=== PATIENT | male | born 1995 | race American Indian/Alaskan Native ===

== ENCOUNTER 2018-08-05 00:39 | Emergency (ER) | payer SELFPAY ==
[2018-08-05 00:56] VITALS: BP 127/68
--- NOTE | 2018-08-05 01:35 | XRay Report ---
FINAL REPORT EXAM: XR CHEST ROUTINE 2V HISTORY: cough, Cough with intermittent fever, spitting up phelgm, chest pain that extends from [place] of chest to right side x3 days TECHNIQUE: 2 views of the chest. PRIORS: None. FINDINGS: The cardiomediastinal silhouette appears normal. The lungs are clear. The bones and soft tissues are unremarkable. IMPRESSION: No evidence of acute cardiopulmonary disease
--- NOTE | 2018-08-05 03:30 | Emergency Department Report ---
HPI - General Chief Complaint: Chest Pain Time Seen by Provider: 08/05/18 03:19 - HPI HPI: Room 1 The patient is a 23-year-old male presenting with a chief complaint chest pain. Patient states the past 3 days he's had intermittent substernal and right-sided chest pain described as sharpness and pressure in nature. Patient admits to occasional shortness of breath and occasional diaphoresis with this pain. Patient admits to occasional pleurisy. Patient denies any recent flights or long car trips. Patient states he has had an occasional cough that is sometimes produces clear/white sputum. When asked how he is feeling currently the patient states he feels "okay." Location: Chest Duration: Intermittent 3 days Quality: Sharp/pressure Severity: Moderate Modifying factors: [see above] Context: [see above] Mode of transportation: [not driving] ED Past Medical Hx - Past Medical History Previous Medical History?: No - Surgical History Past Surgical History?: No - Family History Family history: no significant - Social History Smoking Status: Current Some Day Smoker (occasional) Substance Use Type: None (denies illicit drug use), Alcohol (occasional) - Medications Home Medications: Home Medications Medication Instructions Recorded Confirmed Last Taken Type Ibuprofen [Motrin 800 MG tab] 800 mg PO Q8HR PRN #20 tablet 08/05/18 Unknown Rx traMADol [Ultram] 50 mg PO Q6HR PRN #10 tablet 08/05/18 Unknown Rx ED Review of Systems ROS: Stated complaint: CHEST PAIN/SOB Other details as noted in HPI Constitutional: diaphoresis Eyes: denies: eye pain ENT: denies: throat pain Respiratory: cough, shortness of breath Cardiovascular: chest pain Endocrine: no symptoms reported Gastrointestinal: denies: nausea, vomiting Genitourinary: denies: dysuria Musculoskeletal: denies: back pain Neurological: denies: headache Physical Exam - Physical Exam Vital Signs: Vital Signs 08/05/18 08/05/18 00:48 00:50 Temperature 97.8 F 97.8 F Pulse Rate 78 75 Respiratory 16 16 Rate Blood Pressure 124/68 127/68 O2 Sat by Pulse 100 100 Oximetry Physical Exam: GENERAL: The patient is well-developed well-nourished male lying on stretcher not appearing to be in acute distress. [] HEENT: Normocephalic. Atraumatic. Extraocular motions are intact. Patient has moist mucous membranes. NECK: Supple. Trachea midline CHEST/LUNGS: Clear to auscultation. There is no respiratory distress noted. HEART/CARDIOVASCULAR: Regular. There is no tachycardia. There is no gallop rub or murmur. ABDOMEN: Abdomen is soft, nontender. Patient has normal bowel sounds. There is no abdominal distention. SKIN: There is no rash. There is no edema. There is no diaphoresis. NEURO: The patient is awake, alert, and oriented. The patient is cooperative. The patient has normal speech MUSCULOSKELETAL: There is no evidence of acute injury. ED Course Vital Signs 08/05/18 08/05/18 00:48 00:50 Temperature 97.8 F 97.8 F Pulse Rate 78 75 Respiratory 16 16 Rate Blood Pressure 124/68 127/68 O2 Sat by Pulse 100 100 Oximetry ED Medical Decision Making - Lab Data Result diagrams: 08/05/18 03:35 08/05/18 03:35 Laboratory Tests 08/05/18 08/05/18 08/05/18 03:35 03:35 03:35 WBC 3.9 L RBC 5.08 H Hgb 14.3 Hct 42.9 MCV 85 MCH 28 MCHC 33 RDW 16.2 H Plt Count 214 Lymph % (Auto) 48.6 H [place] % (Auto) 5.2 Eos % (Auto) 3.0 Baso % (Auto) 0.8 Lymph # 1.9 [place] # 0.2 Eos # 0.1 Baso # 0.0 Seg Neutrophils % 42.4 Seg Neutrophils # 1.6 L D-Dimer 137.63 Sodium 139 Potassium 3.9 Chloride 100.2 Carbon Dioxide 27 Anion Gap 16 BUN 13 Creatinine 0.8 Estimated GFR > 60 BUN/Creatinine Ratio 16 Glucose 97 Calcium 9.0 Total Creatine Kinase 150 CK-MB (CK-2) < 1.0 CK-MB (CK-2) Rel Index 0.6 Troponin T < 0.010 - EKG Data -: EKG Interpreted by Me EKG shows normal: sinus rhythm Rate: normal - EKG Data When compared to previous EKG there are: previous EKG unavailable Interpretation: nonspecific ST-T wave henry (T-wave inversion in lead V2) - Radiology Data Radiology results: report reviewed (chest x-ray), image reviewed (chest x-ray) interpreted by me: Chest x-ray-no focal infiltrates, no pneumothorax [facility] [address] [place] [address] XRay Report Signed Patient: TYLER AUSTIN MR#: [id number] : 1995 Acct:[id number] Age/Sex: 23 / M ADM Date: 08/05/18 Loc: ED Attending Dr: Ordering Physician: CHRISTOPHER GIL MD Date of Service: 08/05/18 Procedure(s): XR chest routine 2V Accession Number(s): [id number] cc: ED MD LOUISE Fluoro Time In Minutes: FINAL REPORT EXAM: XR CHEST ROUTINE 2V HISTORY: cough, Cough with intermittent fever, spitting up phelgm, chest pain that extends from [place] of chest to right side x3 days TECHNIQUE: 2 views of the chest. PRIORS: None. FINDINGS: The cardiomediastinal silhouette appears normal. The lungs are clear. The bones and soft tissues are unremarkable. IMPRESSION: No evidence of acute cardiopulmonary disease Transcribed By: ML Dictated By: DONAVON WOOD MD Electronically Authenticated By: DONAVON WOOD MD Signed Date/Time: 08/05/18134 DD/ 3 TD/TT: 08/05/18133 - Differential Diagnosis pleurisy, PE, bronchitis, pneumonia, pneumothorax, costochondritis Critical care attestation.: If time is entered above; I have spent that time in minutes in the direct care of this critically ill patient, excluding procedure time. ED Disposition Clinical Impression: Atypical chest pain Disposition: DC-01 TO HOME OR SELFCARE Is pt being admited?: No Does the pt Need Aspirin: No Condition: Stable Instructions: Chest Pain (ED) Additional Instructions: Return to the emergency department immediately should you develop worsening symptoms, fever, inability to tolerate food or liquid or any other concerns. Prescriptions: Ibuprofen [Motrin 800 MG tab] 800 mg PO Q8HR PRN #20 tablet PRN Reason: Pain, Moderate (4-6) traMADol [Ultram] 50 mg PO Q6HR PRN #10 tablet PRN Reason: Pain Referrals: ORLEANS NIYADAVID FLOREZ MD [Primary Care Provider] - 3-5 Days Time of Disposition: 04:04
[2018-08-05 03:45] LABS: Basophils % (Auto) 0.8 % (0.0-1.8); Eosinophils # (Auto) 0.1 K/mm3 (0.0-0.4); Hematocrit 42.9 % (35.5-45.6); Hemoglobin 14.3 gm/dl (11.8-15.2); Lymphocytes # (Auto) 1.9 K/mm3 (1.2-5.4); Lymphocytes % (Auto) 48.6 % (13.4-35.0); Mean Corpuscular HGB Conc 33 % (32-34); Mean Corpuscular Volume 85 fl (84-94); Monocytes # (Auto) 0.2 K/mm3 (0.0-0.8); Monocytes % (Auto) 5.2 % (0.0-7.3); Platelet Count 214 K/mm3 (140-440); Red Blood Count 5.08 M/mm3 (3.65-5.03); Red Cell Distribution Width 16.2 % (13.2-15.2)
[2018-08-05 04:02] LABS: BUN/Creatinine Ratio 16; Blood Urea Nitrogen 13 mg/dL (9-20); Hemolysis Index 18
[2018-08-05 04:03] LABS: Creatine Kinase MB < 1.0 ng/mL (0.0-4.0)
== END 2018-08-05 04:39 | disposition home or self-care (01) ==
LOC: ED 00:39
DX: R07.89 Other chest pain (principal); F17.200 Nicotine dependence, unspecified, uncomplicated
CPT/HCPCS: 36415; 71046; 80048; 82550; 82553; 84484; 85025; 85379; 93005; 93010

== ENCOUNTER 2018-10-26 18:46 | Emergency (ER) | payer SELFPAY ==
[2018-10-26 18:56] VITALS: BP 113/62
--- NOTE | 2018-10-26 20:10 | Emergency Department Report ---
ED Chest Pain HPI - General Chief Complaint: Chest Pain Stated Complaint: CHEST PAIN Source: patient Mode of arrival: Ambulatory Limitations: No Limitations - History of Present Illness Initial Comments: This is a 23-year-old -[place] male who presents to the emergency room with intermittent chest pain for one month. Patient reports chest pain is predominantly on the right side. He reports intermittent palpitations but denies currently. No past medical history. Patient has a current daily black and mild cigar and marijuana smoker. He denies shortness of breath, radiating pain, dyspnea, nausea or vomiting. MD Complaint: chest pain Onset/Timin -: month(s) Onset: during rest Pain Location: right chest Pain Radiation: none Severity: mild Severity scale (0 -10): 3 Quality: sharp Consistency: intermittent Improves With: nothing Worsens With: nothing re: denies: nausea, vomting, diaphoresis, dyspnea, sense of impending doom Other Symptoms: palpitations. denies: cough, fever, syncope, rash, acid taste in mouth, leg swelling, burping Treatments Prior to Arrival: none Aspirin use within the Past 7 Days: (0) No - Related Data On Oral Contraceptives: No Previous Rx's Medication Instructions Recorded Last Taken Type Ibuprofen [Motrin 800 MG tab] 800 mg PO Q8HR PRN #20 tablet 08/05/18 Unknown Rx traMADol [Ultram] 50 mg PO Q6HR PRN #10 tablet 08/05/18 Unknown Rx Ibuprofen [Motrin 600 MG tab] 600 mg PO Q8H PRN #20 tablet 10/26/18 Unknown Rx Allergies Allergy/AdvReac Type Severity Reaction Status Date / Time No Known Allergies Allergy Verified 10/26/18 18:52 Heart Score - HEART Score History: Slightly suspicious EKG: Normal Age: < 45 Risk factors: 1-2 risk factors Troponin: < normal limit HEART Score: 1 ED Review of Systems ROS: Stated complaint: CHEST PAIN Other details as noted in HPI Constitutional: denies: chills, fever Respiratory: denies: cough, shortness of breath, wheezing Cardiovascular: chest pain, palpitations. denies: dyspnea on exertion, orthopnea, edema, syncope, paroxysmal nocturnal dyspnea Endocrine: no symptoms reported Gastrointestinal: denies: abdominal pain, nausea, diarrhea Skin: denies: rash, lesions Neurological: denies: headache, weakness, paresthesias Psychiatric: denies: anxiety, depression ED Past Medical Hx - Past Medical History Previous Medical History?: No - Surgical History Past Surgical History?: No - Social History Smoking Status: Current Every Day Smoker Substance Use Type: Alcohol, Marijuana - Medications Home Medications: Home Medications Medication Instructions Recorded Confirmed Last Taken Type Ibuprofen [Motrin 800 MG tab] 800 mg PO Q8HR PRN #20 tablet 08/05/18 Unknown Rx traMADol [Ultram] 50 mg PO Q6HR PRN #10 tablet 08/05/18 Unknown Rx Ibuprofen [Motrin 600 MG tab] 600 mg PO Q8H PRN #20 tablet 10/26/18 Unknown Rx ED Physical Exam - General Limitations: No Limitations General appearance: alert, in no apparent distress - Respiratory Respiratory exam: Present: normal lung sounds bilaterally. Absent: respiratory distress, wheezes, rales, rhonchi, stridor, chest wall tenderness - Cardiovascular Cardiovascular Exam: Present: regular rate, normal rhythm. Absent: systolic murmur, diastolic murmur, rubs, gallop - GI/Abdominal GI/Abdominal exam: Present: soft, normal bowel sounds. Absent: distended, tenderness, guarding, rebound, rigid - Neurological Exam Neurological exam: Present: alert, oriented X3 - Psychiatric Psychiatric exam: Present: normal affect, normal mood - Skin Skin exam: Present: warm, dry, intact, normal color. Absent: rash ED Course Vital Signs 10/26/18 18:53 Temperature 98.4 F Pulse Rate 74 Respiratory 16 Rate Blood Pressure 113/62 O2 Sat by Pulse 100 Oximetry ED Medical Decision Making - EKG Data -: No EKG Interpreted by Me (EKG interpreted by the attending) EKG shows normal: sinus rhythm Rate: bradycardia (No STEMI) - Radiology Data Radiology results: report reviewed PROCEDURE: XR CHEST 1V AP TECHNIQUE: Chest radiograph single view. HISTORY: chest pain COMPARISONS: None . FINDINGS: Heart: Normal. Mediastinum/Vessels: Normal. Lungs/Pleural space: Normal. Bony thorax: No acute osseous abnormality. Life support devices: None. IMPRESSION: No acute cardiopulmonary abnormality. - Medical Decision Making Patient was examined by me. Vitals are normal and patient is in no acute distress. Obtained a EKG and chest x-ray. EKG interpreted by attending sinus bradycardia and no STEMI. On focal exam no reproducible tenderness. Heart score 1. Patient was seen in this ER 3 months ago with similar symptoms and did not follow-up as advised. Patient informed of results. Referral to PCP and cardiology for continued care. Start ibuprofen 600 mg by mouth 3 times a day when necessary for pain. Plan discussed with patient to discharge home and treat outpatient. He agrees with ER plan. Patient discharged home in stable condition. Follow up with PCP in 2-3 days. Critical care attestation.: If time is entered above; I have spent that time in minutes in the direct care of this critically ill patient, excluding procedure time. ED Disposition Clinical Impression: Right-sided chest pain, Atypical chest pain Disposition: TO HOME OR SELFCARE Is pt being admited?: No Does the pt Need Aspirin: No Condition: Stable Instructions: Chest Pain (ED) Additional Instructions: Return to the emergency room if worsening symptoms such as radiating pain, difficulty breathing, palpitations, or numbness or tingling. Prescriptions: Ibuprofen [Motrin 600 MG tab] 600 mg PO Q8H PRN #20 tablet PRN Reason: Pain Referrals: [facility] MD MARGARITO [Primary Care Provider] - 3-5 Days [facility] [Outside] - 3-5 Days DEVANG HOYOS MD [Staff Physician] - 3-5 Days Forms: Work/School Release Form(ED) Time of Disposition: 22:25
--- NOTE | 2018-10-26 22:02 | XRay Report ---
PROCEDURE: XR CHEST 1V AP TECHNIQUE: Chest radiograph single view. HISTORY: chest pain COMPARISONS: None . FINDINGS: Heart: Normal. Mediastinum/Vessels: Normal. Lungs/Pleural space: Normal. Bony thorax: No acute osseous abnormality. Life support devices: None. IMPRESSION: No acute cardiopulmonary abnormality. This document is electronically signed by Mac Fields MD., Oct 26 2018 10:01:02 PM ET
== END 2018-10-26 22:35 | disposition home or self-care (01) ==
LOC: ED 18:46
DX: R07.89 Other chest pain (principal); F17.200 Nicotine dependence, unspecified, uncomplicated; F12.10 Cannabis abuse, uncomplicated
CPT/HCPCS: 71045; 93005; 93010; 99283